=== PATIENT | female | born 1995 | race Caucasian/White ===

== ENCOUNTER 2017-03-18 22:52 | Emergency (ER) | payer SELFPAY ==
[2017-03-19 00:30] LABS: APPEARANCE,URINE CLEAR; BILIRUBIN,URINE NEGATIVE (NEGATIVE); GLUCOSE, URINE NEGATIVE (NEGATIVE); KETONES,URINE NEGATIVE (NEGATIVE); LEUKOCYTE ESTERASE,URINE TRACE (NEGATIVE); NITRITE,URINE NEGATIVE (NEGATIVE); PROTEIN,URINE NEGATIVE (NEGATIVE); URINE SPECIFIC GRAVITY 1.005; UROBILINOGEN,URINE NEGATIVE mg/dL (<2.0)
[2017-03-19 00:46] LABS: URINE BARBITURATES SCREEN NEGATIVE; URINE METHADONE SCREEN NEGATIVE; URINE OPIATES LOW NEGATIVE; URINE PHENCYCLIDINE SCREEN NEGATIVE
[2017-03-19 00:54] LABS: ABSOLUTE EOSINOPHILS # (AUTO) 0.1 10^3/uL (0.0-0.6); ABSOLUTE LYMPHOCYTES (AUTO) 1.2 10^3/uL (0.5-4.7); ABSOLUTE MONOCYTES (AUTO) 0.6 10^3/uL (0.1-1.4); ABSOLUTE NEUT (AUTO) 2.5 10^3/uL (1.7-8.2); BASOPHILS % (AUTO) 0.6 % (0-2); EOSINOPHILS % (AUTO) 2.6 % (0-6); HEMOGLOBIN 10.4 g/dL (12.0-15.5); HGB HCT DIFFERENCE -1.8; LYMPHOCYTES % (AUTO) 27.7 % (13-45); MEAN CORPUSCULAR HEMOGLOBIN 23.6 pg (27.0-33.4); MEAN CORPUSCULAR HGB CONC 31.5 g/dL (32.0-36.0); MEAN CORPUSCULAR VOLUME 75 fl (80-97); MONOCYTES % (AUTO) 13.9 % (3-13); RED BLOOD COUNT 4.41 10^6/uL (3.72-5.28); RED CELL DISTRIBUTION WIDTH 17.6 % (11.5-14.0); SEGMENTED NEUTROPHILS % (AUTO) 55.2 % (42-78); WHITE BLOOD COUNT 4.5 10^3/uL (4.0-10.5)
[2017-03-19 01:07] LABS: BLOOD UREA NITROGEN 8 mg/dL (7-20); CALCIUM 8.8 mg/dL (8.4-10.2); CREATININE RESULT 0.75 mg/dL (0.52-1.25); GLUCOSE 90 mg/dL (75-110)
[2017-03-19 01:08] LABS: ALANINE AMINOTRANSFERASE 29 U/L (5-35); ALBUMIN 4.1 g/dL (3.7-5.6); ALKALINE PHOSPHATASE 65 U/L (50-135); ANION GAP 11 (5-19); ASPARTATE AMINO TRANSFERASE 21 U/L (5-30); BILIRUBIN,DIRECT 0.3 mg/dL (0.0-0.4); BILIRUBIN,TOTAL 0.4 mg/dL (0.2-1.3); CARBON DIOXIDE 23 mmol/L (22-30); CHLORIDE 107 mmol/L (98-107); MAGNESIUM 1.9 mg/dL (1.6-2.3); SODIUM 140.8 mmol/L (137-145); TOTAL PROTEIN 6.8 g/dL (6.3-8.2)
[2017-03-19 01:09] LABS: ALCOHOL < 10 mg/dL (NONE DETECTED)
--- NOTE | 2017-03-19 03:07 | ER Document Report ---
ED Psych Disorder / Suicide - General Chief Complaint: Suicidal Ideation Stated Complaint: SUICIDAL IDEATION/NO PLAN Time Seen by Provider: 03/18/17 23:28 Mode of Arrival: Ambulatory Information source: Patient Notes: This is a 21-year-old female that presents to the emergency room with depression and suicidal ideation. The patient is currently going through divorce and she has lack of family support in the area. She states that she has had worsening depression over the past month. TRAVEL OUTSIDE OF THE [place] IN LAST 30 DAYS: No - HPI Patient complains to provider of: Suicidal ideation Onset: Other - Past month Onset was: Gradual Quality of pain: No pain Severity: None Pain Level: Denies Situational problems related to: Recent divorce Suicide Attempt Method: denies: Drowning, Hanging, Motor Vehicle, Overdose, Shooting, Stabbing/Cutting, Train, Other Overdose of: No: Acetominophen, Alcohol, Anticholinergic, Anti-depressants, Benzodiazepine, Salicylate, Tricyclic Antidepressant, Other Injury to: No: Generalized, Abdomen, Ankle, Back, Breast, Buttocks, Chest, Elbow , Epigastric, Flank, Face, Finger, Foot, Hand, Head, Hip, Knee, Leg, Lower extremity, Mouth, Neck, Pelvic, Penis, Perineum, Rectum, Shoulder, Testicle, Thigh, Throat, Trunk, Upper extremity, Vagina, Wrist Normal mood: No Associated symptoms: Anxious, Depressed Similar symptoms previously: Yes Recently seen / treated by doctor: No - Related Data Allergies/Adverse Reactions: egg Allergy (Verified 03/18/17 23:09) gluten Allergy (Verified 03/18/17 23:09) Home Medications: Current Home Medications No Home Medications 03/18/17 [History] Past Medical History - General Information source: Patient - Social History Smoking Status: Never Smoker Cigarette use (# per day): No Chew tobacco use (# tins/day): No Frequency of alcohol use: None Drug Abuse: None Lives with: Alone Family History: None Patient has suicidal ideation: Yes Patient has homicidal ideation: No - Medical History Medical History: Negative Renal/ Medical History: Denies: Hx Peritoneal Dialysis Surgical Hx: Negative Review of Systems - Review of Systems Constitutional: No symptoms reported EENT: No symptoms reported Cardiovascular: No symptoms reported Respiratory: No symptoms reported Gastrointestinal: No symptoms reported Genitourinary: No symptoms reported Female Genitourinary: No symptoms reported Musculoskeletal: No symptoms reported Skin: No symptoms reported Hematologic/Lymphatic: No symptoms reported Neurological/Psychological: See HPI Physical Exam - Vital signs Vitals: Temp Pulse Resp BP Pulse Ox 98.4 F 63 18 129/64 H 99 03/18/17 23:09 03/18/17 23:09 03/18/17 23:09 03/18/17 23:09 03/18/17 23:09 Notes: Physical exam: GENERAL: 21-year-old female, alert and oriented 3, no acute distress HEAD: Atraumatic, normocephalic. EYES: Pupils equal round and reactive to light, extraocular movements intact, sclera anicteric, conjunctiva are normal. ENT: TMs normal, nares patent, oropharynx clear without exudates. Moist mucous membranes. NECK: Normal range of motion, supple without lymphadenopathy or JVD. LUNGS: Breath sounds clear to auscultation bilaterally and equal. No wheezes rales or rhonchi. HEART: Regular rate and rhythm without murmurs, rubs or gallops. ABDOMEN: Soft, normoactive bowel sounds. No tenderness to palpation. No guarding, no rebound. No masses appreciated. EXTREMITIES: Normal range of motion, no pitting or edema. No clubbing or cyanosis. NEUROLOGICAL: Cranial nerves II through XII grossly intact. Normal speech, normal gait. PSYCH: Depressed SKIN: Warm, Dry, normal turgor, no rashes or lesions noted. Course - Re-evaluation Re-evalutation: 03/19/17 03:06 Patient is medically clear for psychiatric transfer or discharge. 03/19/17 03:07 - Vital Signs Vital signs: Temp Pulse Resp BP Pulse Ox 98.4 F 63 18 129/64 H 99 03/18/17 23:09 03/18/17 23:09 03/18/17 23:09 03/18/17 23:09 03/18/17 23:09 - Laboratory Result Diagrams: 03/19/17 00:36 03/19/17 00:36 Laboratory results interpreted by me: 03/19/17 03/19/17 00:00 00:36 Hgb 10.4 L Hct 33.0 L MCV 75 L MCH 23.6 L MCHC 31.5 L RDW 17.6 H Monocytes % 13.9 H Ur Leukocyte Esterase TRACE H Urine Ascorbic Acid 40 H - EKG Interpretation by Me Rate: Normal Rhythm: NSR - EKG shows normal sinus rhythm with a ventricular rate of 48, no acute ST-T wave changes Discharge - Discharge Clinical Impression: Depression Condition: Stable Disposition: PSYCH HOSP/UNIT
--- NOTE | 2017-03-19 09:37 | PSYCHOLOGICAL NOTE ---
Psych Note - Psych Note Psych Note: Patient resting comfortably in bed. She does complain of feeling congested. She states several months ago she had a sinus infection and took amoxicillin. She states 2 days ago she started to feel congested and took some of the left over amoxicillin. Currently patient's heart is regular rate and rhythm without murmur. Respirations are unlabored and clear. Patient does not have a fever. Patient's vital signs are unremarkable. I discussed with her this this seems most consistent with a viral illness and we will continue to monitor but at this time antibiotics do not appear indicated.
[2017-03-19 13:38] VITALS: BP 107/66
--- NOTE | 2017-03-19 17:14 | EKG REPORT ---
SEVERITY:- OTHERWISE NORMAL ECG - SINUS BRADYCARDIA ATRIAL PREMATURE COMPLEX : Confirmed by: Maryann Augustine MD 19-Mar-2017 17:13:40
== END 2017-03-19 13:38 | disposition home or self-care (01) ==
LOC: ER 22:52
DX: F32.9 Major depressive disorder, single episode, unspecified (principal); R45.851 Suicidal ideations; Z63.5 Disruption of family by separation and divorce; Z91.012 Allergy to eggs; Z91.018 Allergy to other foods
CPT/HCPCS: 36415; 80053; 80307; 81001; 83735; 84443; 84702; 85025; 93005; 93010; 99285